=== PATIENT | female | born 1965 | race Caucasian/White ===

== ENCOUNTER 2022-03-11 10:23 | Outpatient (CLI) | payer MEDICAID, SELFPAY ==
[2022-03-11 13:39] LABS: Albumin* 4.4 g/dL (3.3-5.0)
[2022-03-11 13:40] LABS: Chloride* 107 mmol/L (96-114); Potassium* 4.3 mmol/L (3.6-5.1); Sodium* 141 mmol/L (135-149)
[2022-03-11 13:42] LABS: Aspartate Amino Transferase* 57 U/L (12-35); Bilirubin Total* 0.5 mg/dL (0.1-1.5); Carbon Dioxide* 25 mmol/L (20-32); Cholesterol* 152 mg/dL (90-199); Creatinine* 0.6 mg/dL (0.5-1.5); Estimated Glomerular Filt Rate 104 ml/min; Total Protein* 7.4 g/dL (6.0-8.3)
[2022-03-11 13:43] LABS: Alanine Aminotransferase* 32 U/L (4-35); Alkaline Phosphatase* 170 U/L (40-150); Blood Urea Nitrogen* 18 mg/dL (7-30); Calcium* 8.9 mg/dL (8.4-10.6); Glucose* 107 mg/dL (60-115); HDL Cholesterol* 31 mg/dL (>=50); LDL Cholesterol Calculated 95 mg/dL (<100); Triglycerides* 128 mg/dL (40-149)
[2022-03-11 23:37] LABS: Free T4 Free Thyroxine* 1.12 ng/dL (0.70-1.85)
== END 2022-03-11 10:24 | disposition home or self-care (01) ==
PROVIDERS: PCP Internal Medicine; Visit Provider Internal Medicine
DX: D64.9 Anemia, unspecified (principal); E03.9 Hypothyroidism, unspecified; Z13.6 Encounter for screening for cardiovascular disorders
CPT/HCPCS: 80053; 80061; 84439; 84443